=== PATIENT | female | born 1975 ===

== ENCOUNTER 2017-05-13 17:53 | Emergency (ER) | payer SELFPAY ==
[2017-05-13 17:53] VITALS: BMI 29.5
[2017-05-13 17:57] VITALS: BP 154/81; PULSE 83; RESP 16; TEMP 96.6; O2SAT 99
--- NOTE | 2017-05-13 18:49 | ED PDOC ---
Lower Extremity Pain/Injury Time Seen by Provider: 05/13/17 18:17 Chief Complaint (Nursing): Lower Extremity Problem/Injury Chief Complaint (Provider): Right ankle injury History Per: Patient History/Exam Limitations: no limitations Onset/Duration Of Symptoms: Sudden Onset (prior to arrival) Current Symptoms Are (Timing): Still Present Additional Complaint(s): Allyn is a 42 y/o female who presents to the ED for evaluation of a right ankle injury, occurring just prior to arrival. States she was walking and tripped, twisting the right ankle and hitting the left knee on the ground. Now reports pain to the lateral aspect of right ankle with swelling. Denies taking any medications for pain relief. Also sustained abrasion to left knee. PMD: None provided Past Medical History Reviewed: Historical Data, Nursing Documentation, Vital Signs Vital Signs: Last Vital Signs Temp 96.6 F L 05/13/17 17:54 Pulse 83 05/13/17 17:54 Resp 16 05/13/17 17:54 BP 154/81 H 05/13/17 17:54 Pulse Ox 99 05/13/17 17:54 - Medical History PMH: No Chronic Diseases - Surgical History Surgical History: No Surg Hx - Family History Family History: States: Unknown Family Hx - Social History Current smoker - smoking cessation education provided: No Alcohol: Social Drugs: Denies - Immunization History Hx Tetanus Toxoid Vaccination: Yes (updated last week) Hx Influenza Vaccination: No Hx Pneumococcal Vaccination: No - Home Medications Home Medications: Ambulatory Orders Medication Instructions Recorded No Known Home Med 05/13/17 - Allergies Allergies/Adverse Reactions: Allergies Allergy/AdvReac Type Severity Reaction Status Date / Time No Known Allergies Allergy Verified 02/19/14 02:09 Review of Systems ROS Statement: Except As Marked, All Systems Reviewed And Found Negative Musculoskeletal: Positive for: Leg Pain (Left knee pain and abrasion), Foot Pain (Right ankle pain and swelling) Physical Exam - Reviewed Nursing Documentation Reviewed: Yes Vital Signs Reviewed: Yes - Physical Exam Appears: Positive for: Well (appears comfortable), No Acute Distress Head Exam: Positive for: ATRAUMATIC, NORMOCEPHALIC Eye Exam: Positive for: Normal appearance, EOMI Respiratory: Negative for: Respiratory Distress Extremity: Positive for: Normal ROM (Full ROM but limited at left knee due to pain), Swelling (Swelling and tenderness to lateral malleolus of right ankle), Other (Abrasion at anterior aspect of left knee) Neurologic/Psych: Positive for: Alert, Oriented - ECG O2 Sat by Pulse Oximetry: 99 (RA) Pulse Ox Interpretation: Normal Medical Decision Making Medical Decision Making: Time: 18:21 Impression: Right ankle injury, Left knee injury Differentials include fracture, dislocation, and abrasion to left knee Initial Plan: --X-Ray Right Ankle --X-Ray Left Knee --Motrin 600 mg PO Scribe Attestation: Documented by Wendy Iyer, acting as a scribe for Ellen Vann MD Provider Scribe Attestation: All medical record entries made by the Scribe were at my direction and personally dictated by me. I have reviewed the chart and agree that the record accurately reflects my personal performance of the history, physical exam, medical decision making, and the department course for this patient. I have also personally directed, reviewed, and agree with the discharge instructions and disposition. Disposition - Clinical Impression Clinical Impression: Ankle sprain, Knee sprain - Patient ED Disposition Is Patient to be Admitted: No Doctor Will See Patient In The: Office Counseled Patient/Family Regarding: Studies Performed, Diagnosis, Need For Followup - Disposition Referrals: Podiatry Clinic [Outside] Disposition: Routine/Home Disposition Time: 19:00 Condition: GOOD Additional Instructions: Follow up with your PCP in 2-3 days. Take motrin for pain. Instructions: Ankle Sprain (ED), Knee Sprain (ED) Forms: [facility] ED School/Work Excuse
--- NOTE | 2017-05-14 10:40 | RAD ---
PROCEDURE: Left Knee Radiographs. HISTORY: Pain. COMPARISON: None. FINDINGS: BONES: No acute fracture or destructive bony lesion identified. JOINTS: Normal. No osteoarthritis. JOINT EFFUSION: None. OTHER FINDINGS: None. IMPRESSION: Normal radiographs of the left knee.
--- NOTE | 2017-05-14 10:40 | RAD ---
PROCEDURE: Right Ankle Radiographs. HISTORY: ankle pain injury COMPARISON: None FINDINGS: BONES: No acute fracture or destructive bony lesion identified. JOINTS: Normal. No osteoarthritis. Ankle mortise maintained. Talar dome intact SOFT TISSUES: Normal. OTHER FINDINGS: None. IMPRESSION: Normal right ankle radiographs.
== END 2017-05-13 20:03 | disposition home or self-care (01) ==
LOC: H.ER 17:53
DX: S99.911A Unspecified injury of right ankle, initial encounter (principal); S89.92XA Unspecified injury of left lower leg, initial encounter; W19.XXXA Unspecified fall, initial encounter; Y92.89 Other specified places as the place of occurrence of the external cause